=== PATIENT | female | born 1955 | race American Indian/Alaskan Native ===

== ENCOUNTER 2021-02-11 16:41 | Emergency (ER) | payer MEDICARE ==
[2021-02-11 17:46] VITALS: BP 156/71
--- NOTE | 2021-02-11 17:54 | Emergency Department Report ---
ED ENT HPI - General Chief complaint: Nosebleed Stated complaint: NOSEBLEED Time Seen by Provider: 02/11/21 17:54 Source: patient Mode of arrival: Ambulatory Limitations: No Limitations - History of Present Illness Initial comments: 66 yr old female with pmhx of thyroid disease, HTN, and status post heart valve replacement currently on Coumadin therapy presents to the ER today with complaints of nosebleed. Patient states that last week Thursday she started with heavy nosebleed made from the right nostril. She states that since then the bleeding has slowed down but she does continue to have intermittent small bleeds since Thursday. Her Coumadin level was checked Thursday last week and it was 2.7 and she reports no recent changes to her Coumadin dose. She does report history of allergies with nasal congestion and rhinorrhea. She denies any f acial or head injury. MD complaint: epistaxis - Related Data Previous Rx's Medication Instructions Recorded Last Taken Type Acetaminophen [Acetaminophen 8 650 mg PO Q8H PRN #15 tablet.er 02/16/20 Unknown Rx Hour] Azithromycin [Zithromax Z-SHAD] 250 mg PO DAILY #6 tablet 02/16/20 Unknown Rx Benzonatate [Tessalon Perles] 100 mg PO Q8HR PRN #15 capsule 02/16/20 Unknown Rx Fexofenadine HCl [Pilar Allergy] 180 mg PO DAILY #30 tablet 02/11/21 Unknown Rx Allergies Allergy/AdvReac Type Severity Reaction Status Date / Time No Known Allergies Allergy Verified 02/16/20 16:44 ED Dental HPI - General Chief complaint: Nosebleed Stated complaint: NOSEBLEED Time Seen by Provider: 02/11/21 17:54 Source: patient Mode of arrival: Ambulatory Limitations: No Limitations - Related Data Previous Rx's Medication Instructions Recorded Last Taken Type Acetaminophen [Acetaminophen 8 650 mg PO Q8H PRN #15 tablet.er 02/16/20 Unknown Rx Hour] Azithromycin [Zithromax Z-SHAD] 250 mg PO DAILY #6 tablet 02/16/20 Unknown Rx Benzonatate [Tessalon Perles] 100 mg PO Q8HR PRN #15 capsule 02/16/20 Unknown Rx Fexofenadine HCl [Pilar Allergy] 180 mg PO DAILY #30 tablet 02/11/21 Unknown Rx Allergies Allergy/AdvReac Type Severity Reaction Status Date / Time No Known Allergies Allergy Verified 02/16/20 16:44 ED Review of Systems ROS: Stated complaint: NOSEBLEED Other details as noted in HPI Comment: All other systems reviewed and negative Constitutional: no symptoms reported Eyes: denies: eye pain, eye discharge, vision change ENT: epistaxis. denies: ear pain, throat pain, dental pain, hearing loss, congestion Respiratory: denies: cough, orthopnea, shortness of breath, SOB with exertion, SOB at rest, stridor, wheezing Cardiovascular: denies: chest pain, palpitations, dyspnea on exertion, edema, syncope, paroxysmal nocturnal dyspnea Gastrointestinal: denies: abdominal pain, nausea, vomiting, diarrhea, constipation, hematemesis, melena, hematochezia Genitourinary: denies: urgency, dysuria, frequency, hematuria, discharge, abnormal menses, dyspareunia Musculoskeletal: denies: back pain, joint swelling, arthralgia, myalgia Skin: denies: rash, lesions, change in color, change in hair/nails, pruritus Neurological: denies: headache, weakness, paresthesias, confusion, abnormal g ait, vertigo Psychiatric: denies: anxiety, depression, auditory hallucinations, visual hallucinations, homicidal thoughts, suicidal thoughts Hematological/Lymphatic: denies: easy bleeding, easy bruising, swollen glands ED Past Medical Hx - Past Medical History Previous Medical History?: Yes Hx Asthma: Yes - Surgical History Past Surgical History?: Yes Additional Surgical History: heart valve - Social History Smoking Status: Former Smoker Substance Use Type: None - Medications Home Medications: Home Medications Medication Instructions Recorded Confirmed Last Taken Type Acetaminophen [Acetaminophen 8 650 mg PO Q8H PRN #15 tablet.er 02/16/20 Unknown Rx Hour] Azithromycin [Zithromax Z-SHAD] 250 mg PO DAILY #6 tablet 02/16/20 Unknown Rx Benzonatate [Tessalon Perles] 100 mg PO Q8HR PRN #15 capsule 02/16/20 Unknown Rx Fexofenadine HCl [Pilar Allergy] 180 mg PO DAILY #30 tablet 02/11/21 Unknown Rx ED Physical Exam - General Limitations: No Limitations General appearance: alert, in no apparent distress - Head Head exam: Present: atraumatic, normocephalic, normal inspection - Eye Eye exam: Present: normal appearance, PERRL, EOMI Pupils: Present: normal accommodation - ENT ENT exam: Present: normal exam, mucous membranes moist, other (nasal mucous is dry and mildly pale with small amt of dried blood noted mainly right nostril. No active bleeding. No ttp, swelling, bruising or erythema. ) - Expanded ENT Exam Expanded Mouth exam: Present: normal external inspection Throat exam: Positive: normal inspection - Neck Neck exam: Present: normal inspection, full ROM - Respiratory Respiratory exam: Present: normal lung sounds bilaterally. Absent: respiratory distress - Cardiovascular Cardiovascular Exam: Present: regular rate, normal rhythm, normal heart sounds - GI/Abdominal GI/Abdominal exam: Present: soft. Absent: distended, tenderness - Neurological Exam Neurological exam: Present: alert, oriented X3, CN II-XII intact, normal gait - Psychiatric Psychiatric exam: Present: normal affect, normal mood - Skin Skin exam: Present: intact ED Course Vital Signs 02/11/21 17:44 Temperature 98.6 F Pulse Rate 61 Respiratory 18 Rate Blood Pressure 156/71 [Right] O2 Sat by Pulse 99 Oximetry ED Medical Decision Making - Lab Data Result diagrams: 02/11/21 18:27 - Medical Decision Making 17424: CBC unremarkable. INR is within range at 2.6. Patient has not had any active nose bleeding during stay. She is not toxic or ill-appearing. She is well-hydrated. She is neurologically intact with a normal gait. Vital signs are stable. Discussed lab results with patient. Discussed treatment plan for nosebleed with patient. At this time there is no indication for any nasal packing, additional work-up or admission. Patient expressed understanding of instructions and agree with plan. Patient was stable at time of discharge Critical care attestation.: If time is entered above; I have spent that time in minutes in the direct care of this critically ill patient, excluding procedure time. ED Disposition Clinical Impression: Epistaxis Disposition: DC-01 TO HOME OR SELFCARE Is pt being admited?: No Does the pt Need Aspirin: No Condition: Stable Instructions: Nosebleed, [id number] Additional Instructions: Use afrin (from over the counter) as needed for nose bleed (2-3 sprays in nostril and then hold pressure to nose after spraying afrin. Take the allergy medication as prescribed. Continue taking your coumadin. Follow up with PCP listed on discharge instructions. Return to ED if symptoms changes or worsens in anyway. Prescriptions: Fexofenadine HCl [Pilar Allergy] 180 mg PO DAILY #30 tablet Referrals: RODRIGUEZ ROBISON MD [Staff Physician] - 3-5 Days (Primary care physician) Time of Disposition: 19:38
[2021-02-11 19:01] LABS: Hematocrit 35.6 % (30.3-42.9); Mean Corpuscular HGB Conc 34 % (30-34); Mean Corpuscular Volume 88 fl (79-97); Platelet Count 198 K/mm3 (140-440); Red Blood Count 4.06 M/mm3 (3.65-5.03); Red Cell Distribution Width 14.7 % (13.2-15.2)
[2021-02-11 19:02] LABS: INR 2.6 (0.87-1.13)
[2021-02-11 19:03] LABS: Partial Thromboplastin Time 52.6 Sec. (24.2-36.6)
[2021-02-11 22:28] LABS: Total Cells Counted 100
[2021-02-11 22:29] LABS: Ovalocytes Rare
[2021-02-11 22:30] LABS: Platelet Estimate Consistent w Auto
== END 2021-02-11 19:45 | disposition home or self-care (01) ==
LOC: ED 16:41
DX: R04.0 Epistaxis (principal); J45.909 Unspecified asthma, uncomplicated; Z79.899 Other long term (current) drug therapy; Z87.891 Personal history of nicotine dependence; Z98.890 Other specified postprocedural states
CPT/HCPCS: 36415; 85007; 85025; 85610; 85730